=== PATIENT | female | born 1975 | race Caucasian/White ===

== ENCOUNTER → 2018-02-18 20:42 | Outpatient (CLI) | payer BC | END | disposition home or self-care (01) | LOC: D.MAMMO 16:00 | DX: Z12.31 Encounter for screening mammogram for malignant neoplasm of breast (principal) ==

== ENCOUNTER 2018-07-23 07:01 | Observation (INO) | payer BC ==
[~2018-07-23] VITALS: Ht 160 cm; Wt 56.8 kg
[2018-07-23 07:34] LABS: BASOPHILS 0.8 % (0-2); EOSINOPHILS 3.8 % (0-7); HEMATOCRIT 41.9 % (36.0-48.0); HEMOGLOBIN 13.9 g/dL (12-16); IMMATURE GRANULOCYTES 0.1 % (0-5); LYMPHOCYTES 39.5 % (15-50); MCH 31.9 pg (26.0-34.0); MCHC 33.2 g/dL (31.0-37.0); MCV 96.1 fL (80.0-100.0); MEAN PLATELET VOLUME 9.8 fL (7.4-10.4); MONOCYTES 8.4 % (2-11); NEUTROPHILS 47.4 % (40-80); PLATELET COUNT 315 10x3/uL (130-400); RBC 4.36 10x6/uL (4.00-5.40); RDW 12.7 % (11.5-14.5); WBC 7.1 10x3/uL (4.8-10.8)
[2018-07-23 07:47] LABS: ALBUMIN 3.5 g/dL (3.4-5.0); ALKALINE PHOSPHATASE 71 U/L (46-116); ALT (SGPT) 32 U/L (10-68); BILIRUBIN - TOTAL 0.45 mg/dL (0.2-1.3); CALC OSMOLALITY 278 mosm/kg (275-300); CALCIUM 8.9 mg/dL (8.5-10.1); CARBON DIOXIDE 23.4 mmol/L (21.0-32.0); CHLORIDE - SERUM 102 mmol/L (98-107); CREATININE - SERUM 0.9 mg/dL (0.6-1.3); GLUCOSE 109 mg/dL (74-106); POTASSIUM - SERUM 3.7 mmol/L (3.5-5.1); PROTEIN - SERUM 7.3 g/dL (6.4-8.2); SODIUM 137 mmol/L (136-145); UREA NITROGEN 25 mg/dL (7-18); eGFR NON AFRICAN AMERICAN 73 mL/min (90-120)
[2018-07-23 07:50] LABS: AMYLASE - SERUM 49 U/L (25-115); LIPASE 218 U/L (73-393)
[2018-07-23 07:51] LABS: TROPONIN-I < 0.017 ng/mL (0.000-0.060)
[2018-07-23 08:17] LABS: APPEARANCE HAZY (CLEAR); BACTERIA FEW /hpf (NONE SEEN); BILIRUBIN NEGATIVE (NEGATIVE); COLOR YELLOW (YELLOW); EPITHELIAL CELLS 0-5 /hpf (0-5); GLUCOSE NEGATIVE (NEGATIVE); KETONE NEGATIVE (NEGATIVE); NITRITE NEGATIVE (NEGATIVE); PROTEIN TRACE mg/dL (NEGATIVE); SPECIFIC GRAVITY 1.015 (1.005-1.020); UROBILINOGEN NORMAL (NORMAL); WHITE CELLS - URINE OCC /hpf (0-5)
[2018-07-23 12:17] LABS: ERYTHROCYTE SEDIMENTATION RATE 7 mm/hr (0-20)
[2018-07-23 15:02] VITALS: BP 107/62
[2018-07-23 17:01] VITALS: BP 107/62; BMI 22.1
[2018-07-23 17:08] VITALS: Ht 160 cm; Wt 56.8 kg
[2018-07-23 20:00] VITALS: BP 97/45
[2018-07-24] VITALS: BP 83/35
[2018-07-24 04:00] VITALS: BP 92/45
[2018-07-24 06:09] LABS: BASOPHILS 0.6 % (0-2); EOSINOPHILS 2.3 % (0-7); HEMATOCRIT 37.5 % (36.0-48.0); HEMOGLOBIN 12.3 g/dL (12-16); IMMATURE GRANULOCYTES 0.3 % (0-5); LYMPHOCYTES 24.1 % (15-50); MCH 31.9 pg (26.0-34.0); MCHC 32.8 g/dL (31.0-37.0); MCV 97.4 fL (80.0-100.0); MEAN PLATELET VOLUME 10.1 fL (7.4-10.4); MONOCYTES 7.9 % (2-11); NEUTROPHILS 64.8 % (40-80); PLATELET COUNT 256 10x3/uL (130-400); RBC 3.85 10x6/uL (4.00-5.40); RDW 12.8 % (11.5-14.5); WBC 6.9 10x3/uL (4.8-10.8)
[2018-07-24 06:51] LABS: ANION GAP 12.5 mmol/L (8-16); BILIRUBIN - TOTAL 0.35 mg/dL (0.2-1.3); CALCIUM 8.5 mg/dL (8.5-10.1); CARBON DIOXIDE 27.6 mmol/L (21.0-32.0); CREATININE - SERUM 0.9 mg/dL (0.6-1.3); POTASSIUM - SERUM 4.1 mmol/L (3.5-5.1); PROTEIN - SERUM 6.3 g/dL (6.4-8.2)
[2018-07-24 08:31] VITALS: BP 96/53
[2018-07-24] MEDS ORDERED: CARAFATE1 G PO (11:25)
[2018-07-24] MEDS ORDERED: PROTONIX40 MG PO (11:25)
[2018-07-24 13:05] VITALS: BP 100/69
--- NOTE | 2018-07-27 08:26 | MORECARE ---
CASE MANAGEMENT DISCHARGE SUMMARY PATIENT: IVY MORA UNIT: [id number] ADM DATE: 07/23/18 AGE: 43 : 79 SEX: F ROOM/BED: D.2102 AUTHOR: RAYMON RAMIREZ PHYSICIAN: REFERRING PHYSICIAN: LUCHO SANDHU MD DATE OF SERVICE: 07/27/18 Discharge Plan Patient Name: IVY MORA Facility: [facility]:[place] : 1975 Planned Disposition: Home Anticipated Discharge Date: 07/24/18 Discharge Date: 07/24/2018 Expected LOS: 1 Initial Reviewer: [email or web address] Initial Review Date: 07/27/2018 Generated: 07/27/18 9:26 am Patient Name: IVY MORA Page [id number] at 0826 All edits/amendments must be made on the electronic document DICTATION DATE: 07/27/18825 CHANNEL DEVELOPMENT MANAGER: KEVIN 07/27/18825 RPT#: [id number] DC DATE:07/24/18 STATUS: DIS IN [facility] [address] [place] [address] END OF REPORT
== END 2018-07-24 13:21 | disposition home or self-care (01) ==
LOC: D.ER 07:01 → D.M2 11:26 → D.EDHOLD 11:26 → OBSVTIME 11:27 → D.M2 12:38
PROVIDERS: Family Medicine; ADMIT Internal Medicine Nephrology
DX: K59.00 Constipation, unspecified (principal); N17.9 Acute kidney failure, unspecified; G44.40 Drug-induced headache, not elsewhere classified, not intractable; T47.4X5A Adverse effect of other laxatives, initial encounter; Y92.230 Patient room in hospital as the place of occurrence of the external cause